=== PATIENT | female | born 1980 | race Hispanic/Latino ===

== ENCOUNTER 2020-08-12 14:07 | Outpatient (CLI) | payer OTHER ==
[2020-08-13 02:14] LABS: SARS-CoV-2 PCR by NAA Not Detected (NotDetected)
== END 2020-08-12 14:08 | disposition home or self-care (01) ==
LOC: CSHLAB 14:07
PROVIDERS: ATTEND Orthopaedic Surgery
DX: Z20.822 Contact with and (suspected) exposure to COVID-19 (principal); J40 Bronchitis, not specified as acute or chronic
CPT/HCPCS: 87635; U0003; U0005

== ENCOUNTER 2020-08-17 14:50 | Outpatient (CLI) | payer OTHER | END 2020-08-17 14:51 | disposition home or self-care (01) | LOC: CSHCP 14:50 | PROVIDERS: ATTEND Orthopaedic Surgery | DX: J40 Bronchitis, not specified as acute or chronic (principal); J98.4 Other disorders of lung | CPT/HCPCS: 94060; 94760 ==

== ENCOUNTER 2020-11-25 12:42 | Outpatient (CLI) | payer OTHER | END 2020-11-25 12:43 | disposition home or self-care (01) | LOC: CSHMAMMO 12:42 | DX: N63.20 Unspecified lump in the left breast, unspecified quadrant (principal); Z98.890 Other specified postprocedural states | CPT/HCPCS: 77066; G0279 ==